=== PATIENT | female | born 1940 | race Hispanic/Latino ===

== ENCOUNTER → 2022-10-04 | Outpatient (CLI) | payer MEDICARE | END | disposition home or self-care (01) | LOC: SHCH 08:23 | PROVIDERS: ATTEND Internal Medicine Cardiovascular Disease | DX: I08.0 Rheumatic disorders of both mitral and aortic valves (principal); I25.810 Atherosclerosis of coronary artery bypass graft(s) without angina pectoris; E78.5 Hyperlipidemia, unspecified; F50.89 Other specified eating disorder; G45.9 Transient cerebral ischemic attack, unspecified | CPT/HCPCS: 93306; 93880 ==

== ENCOUNTER → 2023-09-05 | Outpatient (CLI) | payer MEDICARE | END | disposition home or self-care (01) | LOC: SHCH 08:33 | PROVIDERS: ATTEND Internal Medicine Cardiovascular Disease | DX: I08.8 Other rheumatic multiple valve diseases (principal); E78.5 Hyperlipidemia, unspecified; I11.9 Hypertensive heart disease without heart failure | CPT/HCPCS: 93306 ==

== ENCOUNTER → 2024-02-12 | Outpatient (CLI) | payer MEDICARE | END | disposition home or self-care (01) | LOC: SHCH 08:47 | PROVIDERS: ATTEND Internal Medicine Cardiovascular Disease | DX: I65.23 Occlusion and stenosis of bilateral carotid arteries (principal); I08.0 Rheumatic disorders of both mitral and aortic valves; I10 Essential (primary) hypertension; E78.5 Hyperlipidemia, unspecified; Z95.818 Presence of other cardiac implants and grafts | CPT/HCPCS: 93306; 93880 ==

== ENCOUNTER → 2024-02-18 | Outpatient (CLI) | payer MEDICARE ==
[2024-02-18 12:25] LABS: CREATININE 0.6 mg/dL (0.5-1.0)
== END | disposition home or self-care (01) ==
LOC: LAB 11:16
PROVIDERS: ATTEND Internal Medicine Cardiovascular Disease
DX: I10 Essential (primary) hypertension (principal)
CPT/HCPCS: 36415; 80048

== ENCOUNTER → 2024-02-28 | Outpatient (CLI) | payer MEDICARE ==
[~2024-02-28] MED LIST: IOHEXOL-350 75 ML VIAL IV ONE
== END | disposition home or self-care (01) ==
LOC: RAH 08:08
PROVIDERS: ATTEND Internal Medicine Cardiovascular Disease
DX: I65.23 Occlusion and stenosis of bilateral carotid arteries (principal); M47.812 Spondylosis without myelopathy or radiculopathy, cervical region; Z95.828 Presence of other vascular implants and grafts
CPT/HCPCS: 70498; Q9967